=== PATIENT | female | born 1955 | race Caucasian/White ===

== ENCOUNTER 2016-08-06 16:23 | Emergency (ER) | payer OTHER ==
[~2016-08-06] VITALS: Ht 160 cm; Wt 69.7 kg
[2016-08-06 16:30] VITALS: TEMP 36.7; Ht 160 cm; Wt 69.7 kg
[2016-08-06] MEDS ORDERED: ONDANSETRON INJ 2 MG/ML 2 ML VIAL IV STA (16:34)
[2016-08-06] MEDS: MoRPHine SULFATE 4 MG/ML 1 ML CARP\\VIAL IV PRN ×2 (16:43→18:23)
--- NOTE | 2016-08-06 16:44 | EMERGENCY ROOM VISIT NOTE ---
History Report prepared by Michaela: Shane Calhoun Under the Supervision of: Ashli DiggsO. First contact with patient: 16:31 Chief Complaint: ANKLE PAIN Stated Complaint: ANKLE INJURY History of Present Illness The patient is a 61 year old female who presents to the Emergency Room with complaints of a persistent right ankle injury after a horse fell on top of her prior to arrival today. She says that a horse was coming off an embankment, and onto the road, and the feet of the horse came out from underneath the horse, and fell onto the patient. The patient states that she has sharp right ankle pain, and she has a scrape on her right elbow. She denies any other pain, including back or neck pain. The patient says that she last ate and drank this morning. She has a history of a hysterectomy and appendectomy. She takes Cymbalta for fibromyalgia. She also takes Clonazepam. Source of History: patient Onset: Prior to arrival today Position: ankle (right) Quality: sharp (pain), other (injury) Timing: other (persistent) Associated Symptoms: No neck pain, No back pain Note: Associated symptoms: Scrape on right elbow. Denies any other pain. Review of Systems See HPI for pertinent positives & negatives. A total of 10 systems reviewed and were otherwise negative. Past Medical & Surgical Medical Problems: (1) Fibromyalgia Family History No pertinent family history Social History Marital Status: Housing Status: lives with family Occupation Status: employed Current/Historical Medications Scheduled Clonazepam (Klonopin), 1 MG PO QPM Duloxetine HCl (Cymbalta), 60 MG PO QPM Scheduled PRN Oxycodone Immediate Rel Tab (Roxicodone Ir), 1-2 TAB PO Q4H PRN for Severe Pain Allergies Coded Allergies: No Known Allergies (Unverified , 08/06/16) Physical Exam Vital Signs Date Time Temp Pulse Resp B/P (MAP) Pulse Ox O2 Delivery O2 Flow Rate FiO2 08/06/16 19:23 89 12 132/78 92 Room Air 08/06/16 18:50 73 12 145/85 98 Nasal Cannula 2.0 08/06/16 18:42 78 6 148/80 99 Nasal Cannula 2.0 08/06/16 18:35 79 11 151/81 96 Nasal Cannula 2.0 08/06/16 18:32 73 8 153/85 99 Nasal Cannula 2.0 08/06/16 18:30 75 20 148/90 98 Nasal Cannula 2.0 08/06/16 18:30 75 20 148/90 98 Nasal Cannula 2.0 08/06/16 17:58 72 12 131/78 97 Room Air 08/06/16 17:54 78 12 131/78 98 Room Air 08/06/16 17:48 73 08/06/16 16:30 36.7 96 18 127/88 95 Room Air Physical Exam GENERAL: Patient is awake, alert, very anxious and uncomfortable appearing, appears to be in significant pain. EYES: The conjunctivae are clear. The pupils are round and reactive. EARS, NOSE, MOUTH AND THROAT: The nose is without any evidence of any deformity. Mucous membranes are moist tongue is midline NECK: The neck is nontender and supple. RESPIRATORY: Normal respiratory effort is noted there is no evidence of wheezing rhonchi or rales CARDIOVASCULAR: Regular rate and rhythm noted there no murmurs rubs or gallops normal S1 normal S2 GASTROINTESTINAL: The abdomen is soft. Bowel sounds are present in all quadrants. Abdomen is nontender BACK: No midline tenderness or or step-off noted range of motion in flexion extension as well as rotation no signs of muscle spasm noted MUSCULOSKELETAL/EXTREMITIES: Significant deformity to right ankle, no tenderness over right foot or right knee. SKIN: Abrasion over right forearm, no active bleeding noted, pulses symmetric in both feet. NEUROLOGIC: Patient is awake alert and oriented x3. GCS of 15. Medical Decision & Procedures ER Provider Diagnostic Interpretation: X-ray results as stated below per interpretation by me and the radiologist. RIGHT ANKLE MIN 3 VIEWS ROUTINE CLINICAL HISTORY: right ankle injury Right trauma. Pain. COMPARISON: None. DISCUSSION: Displaced trimalleolar fracture dislocation right ankle. The tibia is dislocated anteriorly in relation to the talus. There is oblique fracture of the posterior malleolus. There is oblique fracture of the distal fibular shaft. There is a transverse slightly oblique fracture of the distal tibia and medial malleolus. Talus appears to be generally intact. Subtalar joint shows no evidence for disruption. Considerable soft tissue edema IMPRESSION: Trimalleolar fracture/dislocation right ankle. Electronically signed by: Shade Mcfadden M.D. 08/06/2016 5:26 PM Dictated Date/Time: 08/06/2016 5:24 PM RIGHT ANKLE 2 VIEWS CLINICAL HISTORY: post reduction Right fracture COMPARISON: None. DISCUSSION: Considerable improvement in alignment status post closed reduction. The trimalleolar fractures again noted. No evidence for dislocation. The subtalar joint appears to be intact. There is no evidence for soft tissue swelling. IMPRESSION: Anatomic alignment status post closed reduction of a trimalleolar fracture. Electronically signed by: Shade Mcfadden M.D. 08/06/2016 7:04 PM Dictated Date/Time: 08/06/2016 7:04 PM Medications Administered Medications (Trade) Dose Ordered Sig/Stacey Route Start Time Stop Time Status Last Admin Dose Admin Diphtheria/ Pertussis/Tetanus Vacc (Adacel Inj) 0.5 ml ONCE ONCE IM. 08/06/16 16:45 08/06/16 16:46 DC 08/06/16 16:44 0.5 ML Ondansetron HCl (Zofran Inj) 4 mg NOW STAT IV 08/06/16 16:34 08/06/16 16:35 DC 08/06/16 16:43 4 MG Morphine Sulfate (MoRPHine SULFATE INJ) 4 mg Q15M PRN IV 08/06/16 16:45 08/06/16 20:33 DC 08/06/16 18:23 4 MG Propofol (Diprivan Iv Emulsion 20ml Vial) 200 mg STK-MED ONCE IV 08/06/16 18:12 08/06/16 18:13 DC 08/06/16 18:30 200 MG Ketamine HCl (Ketalar Steri-Vial Inj) 500 mg STK-MED ONCE .ROUTE 08/06/16 18:12 08/06/16 18:13 DC 08/06/16 18:35 10 MG Oxycodone HCl (Roxicodone Immediate Rel 5MG Home Pack) 1 homepack UD ONCE PO 08/06/16 19:45 08/06/16 19:46 DC 08/06/16 19:55 1 HOMEPACK Procedure Procedural Sedation Indication Right ankle fracture dislocation. Total time: 16 minutes. Written consent was obtained after the risks and benefits were explained to the patient, including, but not limited to aspiration, allergic reaction, breathing difficulties, cardiac complications, vomiting, pain, event recall, bleeding, and /or infection. Pre-sedation examination and paperwork completed. The patient was on 100% oxygen via NRB prior to the procedure. Continous end tidal CO2 monitoring, pulse oximetry, and cardiac monitoring were utilized. Suction, airway equipment, medications, respiratory equipment, and appropriate personnel were prepared prior to the initiation of the procedure. A time out was taken. Sedation was achieved utilizing 50 mg of ketamine and 50 mg of propofol. After I observed the patient had reached the appropriate level of sedation the main procedure was performed without complication. Sedation was discontinued and the monitoring continued. The patient recovered quickly from the effects of the medication without complication or adverse event. ED Course 163: The patient was evaluated in room B10. A complete history and physical examination were performed. 1634: Ordered Zofran Inj 4 mg IV. 1644: Ordered Morphine Sulate Inj 4 mg IV PRN, Adacel Inj 0.5 ml IM. 1829: I performed a procedural sedation on the patient. 1911: I discussed the patient with Dr. Valenzuela [facility]. 1941: Upon reevaluation, the patient is resting comfortably. I discussed the results and treatment plan with her. She verbalized agreement of the treatment plan. She was discharged home. Medical Decision Prior records/ancillary studies reviewed. Triage Nursing notes reviewed. Differential diagnosis: Etiologies such as fracture, dislocation, intra-abdominal, pneumothorax, intrathoracic , intracranial, neurologic, as well as other traumatic pathologies were entertained. Medication Reconciliation: I attest that I have personally reviewed the patient' s current medications list. Patient was found to have a slightly elevated blood pressure due to circumstances. I do not believe that the patient requires hypertension monitoring. The patient is a 61-year-old female who presented to the emergency department for an evaluation of ankle pain. The patient was walking with her course scared. Nursing and on her right ankle. The patient had a significant deformity and on x -ray appeared to have a trimalleolar fracture with anterior dislocation with respect to the talus. The patient was treated with IV pain medication in the emergency department. She was also given sedation to facilitate splint placement and had good reduction of the fracture dislocation while putting the splint in place. The patient was treated with splinting as well as crutches. I discussed her case with the orthopedic group of choice. They recommended that the patient continued to be nonweightbearing and keep the leg elevated and iced as much as possible to facilitate healing and then when swelling is improved she would likely require surgical intervention. The patient was encouraged to rest and continue all medications as prescribed. She was also encouraged to return the emergency Department immediately if symptoms change worsen or the need arises. Consults Time Called: 1899 Consulting Physician: Dr. Valenzuela [facility] Returned Call: 1911 I discussed the patient with Dr. [facility]. Impression Primary Impression: Trimalleolar fracture of right ankle Scribe Attestation The scribe's documentation has been prepared under my direction and personally reviewed by me in its entirety. I confirm that the note above accurately reflects all work, treatment, procedures, and medical decision making performed by me. Departure Information Dispostion Home / Self-Care Prescriptions Oxycodone Immediate Rel Tab (ROXICODONE IR) 5 Mg Tab 1-2 TAB PO Q4H Y for Severe Pain, #24 TAB Prov: Jed Blanco, DO 08/06/16 Referrals Ifeanyi Lazcano D.O. Sensiba, Paul R., M.D. Forms HOME CARE DOCUMENTATION FORM, IMPORTANT VISIT INFORMATION, Work Instructions Patient Instructions ED Fx Ankle General, ED Sedation Procedural Discon, [facility] Additional Instructions Call the orthopedic physician in the morning to schedule a follow-up appointment. Keep the leg elevated and iced as described as much as possible. Do not bear any weight on your right ankle until you are treated by the orthopedic physician. Return to the emergency department immediately symptoms change worsen or the need arises. Continue using Tylenol as directed for mild pain. Problem Qualifiers Primary Impression: Trimalleolar fracture of right ankle Encounter type: initial encounter Fracture type: closed Qualified Codes: S82.851A - Displaced trimalleolar fracture of right lower leg, initial encounter for closed fracture
[2016-08-06] MEDS ORDERED: DIPHTHERIA/TETANUS/PERTUSSIS 0.5 ML SYR/VIAL IM. ONE (16:45)
--- NOTE | 2016-08-06 17:27 | DIAGNOSTIC IMAGING REPORT ---
RIGHT ANKLE MIN 3 VIEWS ROUTINE CLINICAL HISTORY: right ankle injury Right trauma. Pain. COMPARISON: None. DISCUSSION: Displaced trimalleolar fracture dislocation right ankle. The tibia is dislocated anteriorly in relation to the talus. There is oblique fracture of the posterior malleolus. There is oblique fracture of the distal fibular shaft. There is a transverse slightly oblique fracture of the distal tibia and medial malleolus. Talus appears to be generally intact. Subtalar joint shows no evidence for disruption. Considerable soft tissue edema IMPRESSION: Trimalleolar fracture/dislocation right ankle. Electronically signed by: Shade Mcfadden M.D. 08/06/2016 5:26 PM Dictated Date/Time: 08/06/2016 5:24 PM
[2016-08-06] MEDS ORDERED: CLON1TAB3 PO (17:42)
[2016-08-06] MEDS ORDERED: CYM/60 PO (17:42)
[2016-08-06 17:54] VITALS: BP 131/78; PULSE 78; O2SAT 98
[2016-08-06] MEDS ORDERED: PROPOFOL IV EMULSION 10 MG/ML 20 ML VIAL IV ONE (18:12)
[2016-08-06] MEDS ORDERED: KETAMINE HCL INJ 50 MG/ML 10 ML VIAL ONE (18:12)
[2016-08-06 18:30] VITALS: BP 148/90; PULSE 75; O2SAT 98
--- NOTE | 2016-08-06 19:06 | DIAGNOSTIC IMAGING REPORT ---
RIGHT ANKLE 2 VIEWS CLINICAL HISTORY: post reduction Right fracture COMPARISON: None. DISCUSSION: Considerable improvement in alignment status post closed reduction. The trimalleolar fractures again noted. No evidence for dislocation. The subtalar joint appears to be intact. There is no evidence for soft tissue swelling. IMPRESSION: Anatomic alignment status post closed reduction of a trimalleolar fracture. Electronically signed by: Shade Mcfadden M.D. 08/06/2016 7:04 PM Dictated Date/Time: 08/06/2016 7:04 PM
[2016-08-06] MEDS ORDERED: OXYC1TAB3 PO (19:21)
[2016-08-06 19:23] VITALS: BP 132/78; PULSE 89; O2SAT 92
[2016-08-06] MEDS ORDERED: OXYCODONE IR HOME PACK PO ONE (19:45)
== END 2016-08-06 20:03 | disposition home or self-care (01) ==
LOC: EDBD 16:23 → C.EDB 16:24
DX: S82.851A Displaced trimalleolar fracture of right lower leg, initial encounter for closed fracture (principal); M79.7 Fibromyalgia; Z23 Encounter for immunization; Z79.899 Other long term (current) drug therapy; W55.19XA Other contact with horse, initial encounter

== ENCOUNTER → 2016-08-07 | Outpatient (CLI) | payer OTHER ==
[~2016-08-07] MED LIST: CLON1TAB3 PO; CYM/60 PO; OXYC1TAB3 PO
--- NOTE | 2016-08-14 08:19 | CODING QUERY NO DIAGNOSIS ---
TREATMENT RENDERED WITHOUT A DIAGNOSIS : 06/28/16 To promote full compliance with coding requirements relating to patient care, physician participation is requested in all cases of [employer] home [employer] uncertainty. Please assist us with providing a diagnosis/symptom for the test(s) below: A diagnosis/symptom was not documented on your Order. A valid diagnosis/symptom is required to bill all insurances. Please remember that we are unable to code a diagnosis of rule out, probable, possible, questionable, or suspected. Tests that require a diagnosis: DOS: 08/07/16 * ECG ROUTINE DIAGNOSIS: Provider Signature: Date: Thank you Rachel Vasquez [employer] Once completed, please kindly fax back to [phone] For questions please call [phone]
== END | disposition home or self-care (01) ==
LOC: C.CPL 15:21
DX: Z01.810 Encounter for preprocedural cardiovascular examination (principal)